=== PATIENT | female | born 1995 | race American Indian/Alaskan Native ===

== ENCOUNTER 2018-09-14 20:44 | Emergency (ER) | payer OTHER ==
--- NOTE | 2018-09-14 21:18 | Emergency Department Report ---
Chief Complaint: Abdominal Pain Stated Complaint: UNABLE TO EAT/ABD PAIN Time Seen by Provider: 09/14/18 21:16 - HPI History of Present Illness: pt presents for epigastric and RUQ abd pain that began two weeks ago no N/V/D states she is constipated no fever LNMP September 05 no PMHx non smoker occ drinker no drug use - Exam Vital Signs: Vital Signs 09/14/18 20:53 Temperature 98.7 F Pulse Rate 88 Respiratory 18 Rate Blood Pressure 126/85 O2 Sat by Pulse 100 Oximetry MSE screening note: Focused history and physical exam performed. Due to findings the following was ordered: labs, UA, urine preg, XR abd ED Disposition for MSE Condition: Stable Instructions: Abdominal Pain (ED) Referrals: SHARON RAYO MD [Primary Care Provider] - 3-5 Days
[2018-09-14 21:50] LABS: Basophils % (Auto) 0.7 % (0.0-1.8); Eosinophils # (Auto) 0.3 K/mm3 (0.0-0.4); Eosinophils % (Auto) 4.4 % (0.0-4.3); Hematocrit 36.8 % (30.3-42.9); Hemoglobin 12.9 gm/dl (10.1-14.3); Lymphocytes # (Auto) 3.1 K/mm3 (1.2-5.4); Lymphocytes % (Auto) 44.4 % (13.4-35.0); Mean Corpuscular HGB Conc 35 % (30-34); Mean Corpuscular Volume 86 fl (79-97); Monocytes # (Auto) 0.5 K/mm3 (0.0-0.8); Monocytes % (Auto) 7.3 % (0.0-7.3); Platelet Count 275 K/mm3 (140-440); Red Blood Count 4.28 M/mm3 (3.65-5.03); Red Cell Distribution Width 12.3 % (13.2-15.2)
[2018-09-14 22:07] LABS: Alanine Aminotransferase 9 units/L (7-56); Albumin 4.6 g/dL (3.9-5); BUN/Creatinine Ratio 11; Blood Urea Nitrogen 9 mg/dL (7-17); Calcium 9.5 mg/dL (8.4-10.2); Hemolysis Index 7
[2018-09-14 23:15] LABS: Bilirubin,Urine NEG (Negative); Blood,Urine NEG (Negative); Color,Urine Yellow (Yellow); Mucus,Urine 3+ /HPF
[2018-09-14 23:18] LABS: HCG Qualitative,Urine Negative (Negative)
--- NOTE | 2018-09-15 00:07 | Emergency Department Report ---
ED Abdominal Pain HPI - General Chief Complaint: Abdominal Pain Stated Complaint: UNABLE TO EAT/ABD PAIN Time Seen by Provider: 09/14/18 21:16 Source: patient Mode of arrival: Ambulatory Limitations: No Limitations - History of Present Illness Initial Comments: This is a 23-year-old female here report that she has been having abdominal pain over a week with weight loss of 11 pounds over 3 weeks and she has not been eating in and she has not had a bowel movement in 1 week. Pain is 10/10 and generalized. Denies any back pain or urinary burning frequency or urgency. Denies any nausea or vomiting. Denies any chest pain or shortness of breath. Last menstrual cycle was 09/05/2018. Denies any fever chills or sore throats. MD Complaint: abdominal pain Onset/Timin -: week(s) Location: diffuse Radiation: none Migration to: no migration Severity: severe Severity scale (0 -10): 10 Quality: cramping, aching Consistency: intermittent Improves With: nothing Worsens With: nothing Context: other (unknown) Associated Symptoms: anorexia, other (reports weight loss of 11 pounds over 3 weeks). denies: nausea, vomiting, diarrhea, fever, chills, constipation, dysuria, hematemesis, hematochezia, melena, hematuria, syncope Treatments Prior to Arrival: other (none) - Related Data LMP Date: 09/05/18 Previous Rx's Medication Instructions Recorded Last Taken Type Acetaminophen/Codeine [Tylenol #3] 1 tab PO Q6H PRN #14 tab 11/04/13 Unknown Rx Ondansetron [Zofran Odt] 4 mg PO Q4H #14 tab.rapdis 11/04/13 Unknown Rx Pseudoephed/Cod/Guaifen 5 ml PO Q8H #1 bottle 03/17/15 Unknown Rx [Robitussin DAC 10-100-30Mg/5Ml] Dicyclomine [Bentyl] 40 mg PO Q8H 3 Days #9 tablet 09/15/18 Unknown Rx Allergies Allergy/AdvReac Type Severity Reaction Status Date / Time No Known Allergies Allergy Verified 12/01/14 10:37 ED Review of Systems ROS: Stated complaint: UNABLE TO EAT/ABD PAIN Other details as noted in HPI Constitutional: weakness. denies: chills, fever Eyes: denies: eye discharge ENT: denies: throat pain, congestion Respiratory: denies: cough, shortness of breath, SOB with exertion, SOB at rest, stridor, wheezing Cardiovascular: denies: chest pain, palpitations, dyspnea on exertion, edema, syncope Gastrointestinal: abdominal pain, constipation. denies: nausea, vomiting, diarrhea, hematemesis, melena, hematochezia Genitourinary: denies: urgency, dysuria, frequency, hematuria, discharge, abnormal menses, dyspareunia Musculoskeletal: denies: back pain, joint swelling, arthralgia, myalgia Skin: denies: rash Neurological: denies: headache, numbness, paresthesias, confusion, abnormal gait, vertigo ED Past Medical Hx - Past Medical History Previous Medical History?: No - Surgical History Past Surgical History?: Yes Additional Surgical History: plastic surgery on forehead - Family History Family history: hypertension - Social History Smoking Status: Never Smoker Substance Use Type: None - Medications Home Medications: Home Medications Medication Instructions Recorded Confirmed Last Taken Type Acetaminophen/Codeine [Tylenol #3] 1 tab PO Q6H PRN #14 tab 11/04/13 Unknown Rx Ondansetron [Zofran Odt] 4 mg PO Q4H #14 tab.rapdis 11/04/13 Unknown Rx Pseudoephed/Cod/Guaifen 5 ml PO Q8H #1 bottle 03/17/15 Unknown Rx [Robitussin DAC 10-100-30Mg/5Ml] Dicyclomine [Bentyl] 40 mg PO Q8H 3 Days #9 tablet 09/15/18 Unknown Rx ED Physical Exam - General Limitations: No Limitations General appearance: alert, in no apparent distress - Head Head exam: Present: atraumatic, normocephalic, normal inspection - Eye Eye exam: Present: normal appearance, PERRL, EOMI - ENT ENT exam: Present: normal orophraynx, mucous membranes dry, TM's normal bilaterally, normal external ear exam - Neck Neck exam: Present: normal inspection, full ROM, other (C-spine tenderness). Absent: tenderness, meningismus, lymphadenopathy - Respiratory Respiratory exam: Absent: normal lung sounds bilaterally, respiratory distress, chest wall tenderness - Cardiovascular Cardiovascular Exam: Present: regular rate, normal rhythm, normal heart sounds - GI/Abdominal GI/Abdominal exam: Present: soft, tenderness (minimal tenderness to the lower abdomen), normal bowel sounds. Absent: distended, guarding, rebound, rigid, organomegaly, mass, bruit, pulsatile mass - Extremities Exam Extremities exam: Present: normal inspection, full ROM, normal capillary refill, other (No cce. + 2 pulses in all extremities, no neurovascular compromise). Absent: tenderness, pedal edema, joint swelling, calf tenderness - Back Exam Back exam: Present: normal inspection, full ROM, other (ambulates without any difficulties). Absent: tenderness, CVA tenderness (R), CVA tenderness (L), muscle spasm, paraspinal tenderness, vertebral tenderness, rash noted - Neurological Exam Neurological exam: Present: alert, oriented X3, normal gait - Psychiatric Psychiatric exam: Present: normal affect, normal mood - Skin Skin exam: Present: warm, dry, intact, normal color. Absent: rash ED Course Vital Signs 09/14/18 09/15/18 20:53 03:14 Temperature 98.7 F 97.1 F L Pulse Rate 88 72 Respiratory 18 16 Rate Blood Pressure 126/85 Blood Pressure 116/64 [Left] O2 Sat by Pulse 100 98 Oximetry - Reevaluation(s) Reevaluation #1: 09/15/18 01:29 Patient stable throughout ED course. Her vital signs are stable. Abdominal x- ray normal findings. Labs are stable except urine with elevated ketone and she was able to tolerate oral liquids without any difficulties for rehydration Reevaluation #2: 09/15/18 02:31 Patient is still awaiting CT scan of the abdomen and pelvis. She stated that presents Reevaluation #3: 09/15/18 05:30 09/15/18 05:29 Patient stable throughout ED course abdominal x-ray normal. Urinalysis showed that she had dehydration with elevated ketones and she was given by mouth fluids and tolerated well. She says she is able to drink but when she eats it makes her gag. Vital signs remained stable. Patient is currently in CT scan. T4 and TSH is normal Reevaluation #4: 09/15/18 06:24 Bentyl, lidocaine and Maalox ordered. CT scan with negative findings except right ovarian cysts which was on previous CT scan . ED Medical Decision Making - Lab Data Result diagrams: 09/14/18 21:26 09/14/18 21:26 Lab Results 09/14/18 09/14/18 09/14/18 Range/Units 21:26 21:26 Unknown WBC 6.9 (4.5-11.0) K/mm3 RBC 4.28 (3.65-5.03) M/mm3 Hgb 12.9 (10.1-14.3) gm/dl Hct 36.8 (30.3-42.9) % MCV 86 (79-97) fl MCH 30 (28-32) pg MCHC 35 H (30-34) % RDW 12.3 L (13.2-15.2) % Plt Count 275 (140-440) K/mm3 Lymph % (Auto) 44.4 H (13.4-35.0) % Holmes % (Auto) 7.3 (0.0-7.3) % Eos % (Auto) 4.4 H (0.0-4.3) % Baso % (Auto) 0.7 (0.0-1.8) % Lymph # 3.1 (1.2-5.4) K/mm3 Holmes # 0.5 (0.0-0.8) K/mm3 Eos # 0.3 (0.0-0.4) K/mm3 Baso # 0.0 (0.0-0.1) K/mm3 Seg Neutrophils % 43.2 (40.0-70.0) % Seg Neutrophils # 3.0 (1.8-7.7) K/mm3 Sodium 139 (137-145) mmol/L Potassium 4.5 (3.6-5.0) mmol/L Chloride 102.7 (98-107) mmol/L Carbon Dioxide 21 L (22-30) mmol/L Anion Gap 20 mmol/L BUN 9 (7-17) mg/dL Creatinine 0.8 (0.7-1.2) mg/dL Estimated GFR > 60 ml/min BUN/Creatinine Ratio 11 % Glucose 79 (65-100) mg/dL Calcium 9.5 (8.4-10.2) mg/dL Total Bilirubin 0.70 (0.1-1.2) mg/dL AST 17 (5-40) units/L ALT 9 (7-56) units/L Alkaline Phosphatase 37 (35-129) units/L Total Protein 8.3 H (6.3-8.2) g/dL Albumin 4.6 (3.9-5) g/dL Albumin/Globulin Ratio 1.2 % Lipase 19 (13-60) units/L Urine Color Yellow (Yellow) Urine Turbidity Slightly-cloudy (Clear) Urine pH 5.0 (5.0-7.0) Ur Specific Kaycee 1.027 (1.003-1.030) Urine Protein 30 mg/dl (Negative) mg/dL Urine Glucose (UA) Neg (Negative) mg/dL Urine Ketones 80 (Negative) mg/dL Urine Blood Neg (Negative) Urine Nitrite Neg (Negative) Urine Bilirubin Neg (Negative) Urine Urobilinogen 2.0 (<2.0) mg/dL Ur Leukocyte Esterase Neg (Negative) Urine WBC (Auto) 1.0 (0.0-6.0) /HPF Urine RBC (Auto) 2.0 (0.0-6.0) /HPF U Epithel Cells (Auto) 9.0 (0-13.0) /HPF Urine Mucus 3+ /HPF Urine HCG, Qual Negative (Negative) - Radiology Data Radiology results: report reviewed Abdominal 2 view x-ray done and dictated by radiologist and no acute findings. CT scan of the abdomen and pelvis with IV contrast dictated by radiologist and report reviewed by myself. Please see below for details Findings [facility] [address] [place] [address] XRay Report Signed Patient: CHRISTY LONDON MR#: [id number] : 1995 Acct:[id number] Age/Sex: 23 / F ADM Date: 09/14/18 Loc: ED Attending Dr: Ordering Physician: EDMAR ALBA Date of Service: 09/14/18 Procedure(s): XR abdomen 2V Accession Number(s): [id number] cc: EDMAR ALBA Fluoro Time In Minutes: PROCEDURE: XR ABDOMEN 2V TECHNIQUE: Abdominal series, including supine and upright AP views. HISTORY: constipation COMPARISONS: None . FINDINGS: Bowel gas pattern: Nonobstructive . Masses or calcifications: None . Bony structures: No significant abnormality . Pneumoperitoneum: None . Other: No significant findings . IMPRESSION: No acute abnormality. This document is electronically signed by Yumiko Lee DO., Sep 15 2018 12:53:53 AM ET Transcribed By: [facility] Dictated By: YUMIKO LEE MD Electronically Authenticated By: YUMIKO LEE MD Signed Date/Time: 09/15/18 0055 Findings [facility] [address] [place] [id number] Cat Scan Report Signed Patient: CHRISTY LONDON MR#: [id number] : 1995 Acct:[id number] Age/Sex: 23 / F ADM Date: 09/14/18 Loc: ED Attending Dr: Ordering Physician: EDMAR CLEANING Date of Service: 09/15/18 Procedure(s): CT abdomen pelvis w con Accession Number(s): [id number] cc: EDMAR CLEANING PROCEDURE: CT ABDOMEN PELVIS W CON TECHNIQUE: Computerized axial tomography of the abdomen and pelvis was performed after the IV injection of iodinated nonionic contrast. HISTORY: abominal pain ?1 week with weight loss COMPARISONS: None . FINDINGS: Visualized lower thorax: No significant abnormality. Liver: Normal size and attenuation. Spleen: Normal size and attenuation. Gallbladder and biliary system: Normal. Pancreas: Normal. Adrenals: Normal. Kidneys: Normal. GI tract: No obstruction. No ileus or enteritis. The cecum, appendix and colon are normal . Lymph nodes and mesentery: Normal. Vasculature: Normal.. Bladder: Normal. Reproductive organs: There is a 2.5 cm cyst on the right ovary. Moderate fluid in the lower pelvis.. Peritoneum: Moderate fluid in the lower pelvis. Musculoskeletal structures: No significant abnormality. Other: None . IMPRESSION: There is no evidence of intestinal or urinary tract obstruction. No ileus or enteritis. The appendix is normal. There is a 2.5 cm cyst on the right ovary. Moderate fluid in the lower pelvis is noted. . This document is electronically signed by Yumiko Lee DO., Sep 15 2018 05:46:17 AM ET Transcribed By: [facility] Dictated By: YUMIKO LEE MD Electronically Authenticated By: YUMIKO LEE MD Signed Date/Time: 09/15/18 0548 DD/ 1 TD/TT: 09/15/18151 - Medical Decision Making This is a 23-year-old female came to the hospital for 1 week of abdominal pain with complaining of weight loss of 11 pounds over 3 weeks. That is unintentional and that she had not had a bowel movement for one week which is not usual and also reported that she is able to drink fluid but she cannot tolerate any solid food because it makes her gag. Abdominal pain is 10/10 and cramping to lower abdomen. Last menstrual period was 09/05/2018. Abdominal exam was mild tenderness to palpate to pelvic area. No CVA tenderness and no mass or hernia. Other exam was normal. Abdominal [id number] findings CT scan of the abdomen and pelvis IV contrast shows right ovarian cyst with moderate fluid and pelvis which was on previous CT scan a few years ago. She has no acute abnormality on CT scan. X-ray and CT scan was dictated by radiologist and report reviewed by myself. Labs: CBC stable, CMP stable, urinalysis is stable except she has elevated ketones and she was orally hydrated with 1 L of fluid which she tolerated well. She is not having any nausea or vomiting or diarrhea and her pain is better. T SH and T4 normal values. test is negative and lipase is normal Assessment/plan Abdominal pain stable-CT scan is stable. [place] to be given Bentyl, lidocaine and Maalox prior to discharge Dehydration-patient was able to drink 1 L of water without any nausea or vomiting or increasing abdominal pain. Right ovarian cyst-stable and was noted on previous CT scan a couple years ago. -Anorexia or weight loss-I discussed the patient that she will need to follow up with primary care doctor and if she does not have a primary care doctor to follow-up at [facility] for evaluation of anorexia with weight loss. I also discussed with her that she is to follow-up with gastroentero logist for evaluation. I discussed with her that she should call today to schedule an appointment for follow-up visit for tomorrow to be seen by provider. I discussed her lab results and CT scan and x-ray results with her. Patient is feeling better and she is not constipated. X-ray. I told her she is not having bowel movement because she is not eating and and that she needs to start off by eating soft food to prevent her from Gagging. Patient discharged home in stable condition, vital signs stable she is afebrile and given prescription for Bentyl - Differential Diagnosis bowel obstruction, malignancy, pelvic abnormality UTI, constipation, Critical care attestation.: If time is entered above; I have spent that time in minutes in the direct care of this critically ill patient, excluding procedure time. ED Disposition Clinical Impression: Anorexia, Weight loss, unintentional Abdominal pain Qualifiers: Abdominal location: generalized Qualified Code(s): R10.84 - Generalized abdominal pain Disposition: - TO HOME OR SELFCARE Is pt being admited?: No Does the pt Need Aspirin: No Condition: Stable Instructions: Dehydration (ED), Abdominal Pain (ED) Additional Instructions: Ensure sure that you follow-up with [facility] in one to 2 days as he did not have a primary care physician Symptoms worsens, return to the emergency room Follow-up with primary care doctor as discussed and [place] [employer]inist for evaluation and treatment of abdominal pain with weight loss and no appetite Increasing fluid intake to keep hydrated. During Gatorade and water at least 2- 3 L per day. Start off with a soft diet to include bananas and rice applesauce and toast and advance as needed. Avoid spicy and acidic food Take Bentyl for stomach pain Referrals: SHARON RAYO MD [Primary Care Provider] - 09/16/18 [facility] [Provider Group] - 09/17/18 Forms: Work/School Release Form(ED)
--- NOTE | 2018-09-15 00:55 | XRay Report ---
PROCEDURE: XR ABDOMEN 2V TECHNIQUE: Abdominal series, including supine and upright AP views. HISTORY: constipation COMPARISONS: None . FINDINGS: Bowel gas pattern: Nonobstructive . Masses or calcifications: None . Bony structures: No significant abnormality . Pneumoperitoneum: None . Other: No significant findings . IMPRESSION: No acute abnormality. This document is electronically signed by Yumiko Lee DO., Sep 15 2018 12:53:53 AM ET
--- NOTE | 2018-09-15 05:48 | Cat Scan Report ---
PROCEDURE: CT ABDOMEN PELVIS W CON TECHNIQUE: Computerized axial tomography of the abdomen and pelvis was performed after the IV inject ion of iodinated nonionic contrast. HISTORY: abominal pain ?1 week with weight loss COMPARISONS: None . FINDINGS: Visualized lower thorax: No significant abnormality. Liver: Normal size and attenuation. Spleen: Normal size and attenuation. Gallbladder and biliary system: Normal. Pancreas: Normal. Adrenals: Normal. Kidneys: Normal. GI tract: No obstruction. No ileus or enteritis. The cecum, appendix and colon are normal . Lymph nodes and mesentery: Normal. Vasculature: Normal.. Bladder: Normal. Reproductive organs: There is a 2.5 cm cyst on the right ovary. Moderate fluid in the lower pelvis.. Peritoneum: Moderate fluid in the lower pelvis. Musculoskeletal structures: No significant abnormality. Other: None . IMPRESSION: There is no evidence of intestinal or urinary tract obstruction. No ileus or enteritis. The appendix is normal. There is a 2.5 cm cyst on the right ovary. Moderate fluid in the lower pelvis is noted. . This document is electronically signed by Yumiko Lee DO., Sep 15 2018 05:46:17 AM ET
[2018-09-15] MEDS ORDERED: BENTYL PO ONE (06:23)
[2018-09-15] MEDS ORDERED: LIDOCAINE VISCOUS 2% PO ONE (06:23)
[2018-09-15] MEDS ORDERED: ALUM-MAG HYDROX-SIMETH 200-200-20MG/5ML PO ONE (06:23)
[2018-09-15 06:59] VITALS: BP 98/61
== END 2018-09-15 06:58 | disposition home or self-care (01) ==
LOC: ED 20:44
DX: R10.84 Generalized abdominal pain (principal); R63.0 Anorexia; R63.4 Abnormal weight loss
CPT/HCPCS: 36415; 74019; 74177; 80053; 81001; 81025; 83690; 84436; 84443; 85025; 87086; 99284; Q9967

== ENCOUNTER 2020-02-29 13:27 | Outpatient (CLI) | payer MEDICAID ==
[2020-02-29 14:42] VITALS: BP 123/73
== END 2020-02-29 16:32 | disposition home or self-care (01) ==
LOC: TRG 13:27
PROVIDERS: ATTEND Obstetrics & Gynecology
DX: O47.1 False labor at or after 37 completed weeks of gestation (principal); Z3A.37 37 weeks gestation of pregnancy
CPT/HCPCS: 59025

== ENCOUNTER 2020-05-30 16:10 | Emergency (ER) | payer MEDICAID ==
[2020-05-30 16:32] VITALS: BP 117/78
--- NOTE | 2020-05-30 18:11 | Emergency Department Report ---
ED Female HPI - General Chief complaint: Vaginal Bleeding Stated complaint: VAGINAL BLEEDING Time Seen by Provider: 05/30/20 18:05 Source: patient Mode of arrival: Ambulatory Limitations: No Limitations - History of Present Illness Initial comments: Patient is a 25-year-old female presents emergency room complaints of heavy vaginal bleeding that began 2 days ago. She states that she is having to change her pad or tampon approximately every 10 minutes and is soaking through her clothes. Passing clots. States that occasionally she does have lower menstrual cramps. Patient states that she had a on 03/04/2020 and reports that she had a fibroid removal right after her . She states that last month in April was the first time she had had a menstrual cycle since having the child, she states that she had bleeding for 3 weeks. She states that she went to see her [employer] Dr. Ellis today and was advised to be evaluated in the emergency department. She denies any fever, nausea, vomiting, diarrhea, dysuria, abnormal discharge, back pain. No past medical history. No allergies to medications. She is not currently on any control but has been in the past due to irregular cycles. - Related Data Previous Rx's Medication Instructions Recorded Last Taken Type Acetaminophen/Codeine [Tylenol #3] 1 tab PO Q6H PRN #14 tab 11/04/13 Unknown Rx Ondansetron [Zofran Odt] 4 mg PO Q4H #14 tab.rapdis 11/04/13 Unknown Rx Pseudoephed/Cod/Guaifen 5 ml PO Q8H #1 bottle 03/17/15 Unknown Rx [Robitussin DAC 10-100-30Mg/5Ml] Dicyclomine [Bentyl] 40 mg PO Q8H 3 Days #9 tablet 09/15/18 Unknown Rx Ibuprofen [Motrin] 600 mg PO Q8H PRN #60 tablet 03/05/20 Unknown Rx oxyCODONE /ACETAMINOPHEN [Percocet 1 tab PO Q6HR PRN #20 tablet 03/05/20 Unknown Rx 5/325] medroxyPROGESTERone ACETATE 10 mg PO QDAY 10 Days #10 tablet 05/30/20 Unknown Rx [Provera] Allergies Allergy/AdvReac Type Severity Reaction Status Date / Time No Known Allergies Allergy Verified 12/01/14 10:37 ED Review of Systems ROS: Stated complaint: VAGINAL BLEEDING Other details as noted in HPI Comment: All other systems reviewed and negative ED Past Medical Hx - Past Medical History Previous Medical History?: No Hx Hypertension: No Hx Heart Attack/AMI: No Hx Congestive Heart Failure: No Hx Diabetes: No Hx Deep Vein Thrombosis: No Hx Liver Disease: No Hx Renal Disease: No Hx Sickle Cell Disease: No Hx Seizures: No Hx Asthma: No Hx COPD: No Hx HIV: No - Surgical History Hx Pacemaker: No Hx Internal Defibrillator: No Additional Surgical History: plastic surgery on forehead. C section - Social History Smoking Status: Never Smoker - Medications Home Medications: Home Medications Medication Instructions Recorded Confirmed Last Taken Type Acetaminophen/Codeine [Tylenol #3] 1 tab PO Q6H PRN #14 tab 11/04/13 03/04/20 Unknown Rx Ondansetron [Zofran Odt] 4 mg PO Q4H #14 tab.rapdis 11/04/13 03/04/20 Unknown Rx Pseudoephed/Cod/Guaifen 5 ml PO Q8H #1 bottle 03/17/15 03/04/20 Unknown Rx [Robitussin DAC 10-100-30Mg/5Ml] Dicyclomine [Bentyl] 40 mg PO Q8H 3 Days #9 tablet 09/15/18 03/04/20 Unknown Rx Ibuprofen [Motrin] 600 mg PO Q8H PRN #60 tablet 03/05/20 Unknown Rx oxyCODONE /ACETAMINOPHEN [Percocet 1 tab PO Q6HR PRN #20 tablet 03/05/20 Unknown Rx 5/325] medroxyPROGESTERone ACETATE 10 mg PO QDAY 10 Days #10 tablet 05/30/20 Unknown Rx [Provera] ED Physical Exam - General Limitations: No Limitations General appearance: alert, in no apparent distress - Head Head exam: Present: atraumatic, normocephalic - Eye Eye exam: Present: normal appearance - ENT ENT exam: Present: mucous membranes moist - Respiratory Respiratory exam: Present: normal lung sounds bilaterally. Absent: respiratory distress, wheezes, rales, rhonchi, stridor, chest wall tenderness, accessory muscle use, decreased breath sounds, prolonged expiratory - Cardiovascular Cardiovascular Exam: Present: regular rate, normal rhythm, normal heart sounds. Absent: systolic murmur, diastolic murmur, rubs, gallop - GI/Abdominal GI/Abdominal exam: Present: soft, normal bowel sounds. Absent: distended, tenderness, guarding, rebound, rigid - Neurological Exam Neurological exam: Present: alert, oriented X3 - Psychiatric Psychiatric exam: Present: normal affect, normal mood - Skin Skin exam: Present: warm, dry, intact ED Course Vital Signs 05/30/20 16:31 Temperature 98.8 F Pulse Rate 107 H Respiratory 18 Rate Blood Pressure 117/78 O2 Sat by Pulse 98 Oximetry ED Medical Decision Making - Lab Data Result diagrams: 05/30/20 18:29 05/30/20 18:29 Lab Results 05/30/20 05/30/20 05/30/20 Range/Units 18:29 18:29 18:29 WBC 11.9 H (4.5-11.0) K/mm3 RBC 4.87 (3.65-5.03) M/mm3 Hgb 11.9 (10.1-14.3) gm/dl Hct 36.5 (30.3-42.9) % MCV 75 L (79-97) fl MCH 24 L (28-32) pg MCHC 33 (30-34) % RDW 18.0 H (13.2-15.2) % Plt Count 278 (140-440) K/mm3 Lymph % (Auto) 18.6 (13.4-35.0) % Graves % (Auto) 7.1 (0.0-7.3) % Eos % (Auto) 4.1 (0.0-4.3) % Baso % (Auto) 0.7 (0.0-1.8) % Lymph # (Auto) 2.2 (1.2-5.4) K/mm3 Graves # (Auto) 0.8 (0.0-0.8) K/mm3 Eos # (Auto) 0.5 H (0.0-0.4) K/mm3 Baso # (Auto) 0.1 (0.0-0.1) K/mm3 Seg Neutrophils % 69.5 (40.0-70.0) % Seg Neutrophils # 8.3 H (1.8-7.7) K/mm3 Sodium 140 (137-145) mmol/L Potassium 4.1 (3.6-5.0) mmol/L Chloride 105.3 (98-107) mmol/L Carbon Dioxide 23 (22-30) mmol/L Anion Gap 16 mmol/L BUN 11 (7-17) mg/dL Creatinine 0.7 (0.6-1.2) mg/dL Estimated GFR > 60 ml/min BUN/Creatinine Ratio 16 % Glucose 86 (65-100) mg/dL Calcium 9.3 (8.4-10.2) mg/dL Total Bilirubin 0.50 (0.1-1.2) mg/dL AST 16 (5-40) units/L ALT 12 (7-56) units/L Alkaline Phosphatase 73 (35-129) units/L Total Protein 8.1 (6.3-8.2) g/dL Albumin 4.6 (3.9-5) g/dL Albumin/Globulin Ratio 1.3 % HCG, Quant < 2 (0-4) mIU/mL Urine Color (Yellow) Urine Turbidity (Clear) Urine pH (5.0-7.0) Ur Specific [place] (1.003-1.030) Urine Protein (Negative) mg/dL Urine Glucose (UA) (Negative) mg/dL Urine Ketones (Negative) mg/dL Urine Blood (Negative) Urine Nitrite (Negative) Urine Bilirubin (Negative) Urine Urobilinogen (<2.0) mg/dL Ur Leukocyte Esterase (Negative) Urine WBC (Auto) (0.0-6.0) /HPF Urine RBC (Auto) (0.0-6.0) /HPF Urine Mucus /HPF 05/30/20 Range/Units 18:49 WBC (4.5-11.0) K/mm3 RBC (3.65-5.03) M/mm3 Hgb (10.1-14.3) gm/dl Hct (30.3-42.9) % MCV (79-97) fl MCH (28-32) pg MCHC (30-34) % RDW (13.2-15.2) % Plt Count (140-440) K/mm3 Lymph % (Auto) (13.4-35.0) % Graves % (Auto) (0.0-7.3) % Eos % (Auto) (0.0-4.3) % Baso % (Auto) (0.0-1.8) % Lymph # (Auto) (1.2-5.4) K/mm3 Graves # (Auto) (0.0-0.8) K/mm3 Eos # (Auto) (0.0-0.4) K/mm3 Baso # (Auto) (0.0-0.1) K/mm3 Seg Neutrophils % (40.0-70.0) % Seg Neutrophils # (1.8-7.7) K/mm3 Sodium (137-145) mmol/L Potassium (3.6-5.0) mmol/L Chloride (98-107) mmol/L Carbon Dioxide (22-30) mmol/L Anion Gap mmol/L BUN (7-17) mg/dL Creatinine (0.6-1.2) mg/dL Estimated GFR ml/min BUN/Creatinine Ratio % Glucose (65-100) mg/dL Calcium (8.4-10.2) mg/dL Total Bilirubin (0.1-1.2) mg/dL AST (5-40) units/L ALT (7-56) units/L Alkaline Phosphatase (35-129) units/L Total Protein (6.3-8.2) g/dL Albumin (3.9-5) g/dL Albumin/Globulin Ratio % HCG, Quant (0-4) mIU/mL Urine Color Red (Yellow) Urine Turbidity Turbid (Clear) Urine pH 6.0 (5.0-7.0) Ur Specific [place] 1.025 (1.003-1.030) Urine Protein >500 (Negative) mg/dL Urine Glucose (UA) 50 (Negative) mg/dL Urine Ketones Neg (Negative) mg/dL Urine Blood Lg (Negative) Urine Nitrite Neg (Negative) Urine Bilirubin Neg (Negative) Urine Urobilinogen < 2.0 (<2.0) mg/dL Ur Leukocyte Esterase Neg (Negative) Urine WBC (Auto) 21.0 H (0.0-6.0) /HPF Urine RBC (Auto) > 182.0 (0.0-6.0) /HPF Urine Mucus 2+ /HPF - Radiology Data Radiology results: report reviewed Ordering Physician: EDMAR ALBA Date of Service: 05/30/20 Procedure(s): US pelvic complete Accession Number(s): [id number] cc: EDMAR ALBA TRANSABDOMINAL PELVIC ULTRASOUND INDICATION / CLINICAL INFORMATION: Heavy vaginal bleeding. COMPARISON: None available. FINDINGS: The uterus measures 8.6 x 5.0 x 6.2 cm. The endometrial stripe measures 2.5 cm AP. No fibroids are seen. The right ovary measures 4.3 x 2.2 x 3.7 cm and the left ovary 3.9 x 2.6 x 2.1 cm. There is normal blood flow to both ovaries on Doppler exam. No evidence of adnexal mass. There is a small amount of free fluid in both adnexal regions and in the cul-de-sac. Images of the urinary bladder are unremarkable. IMPRESSION: Nonspecific thickening of the endometrial stripe. Signer Name: Meir Shea MD Signed: 05/30/2020 8:04 PM Workstation Name: [id number] Transcribed By: RT Dictated By: Meir Shea MD Electronically Authenticated By: Meir Shea MD Signed Date/Time: 05/30/202003 DD/ 00 TD/TT: - Medical Decision Making Patient is a 25-year-old female presents emergency room complaints of heavy vaginal bleeding that began 2 days ago. She states that she is having to change her pad or tampon approximately every 10 minutes and is soaking through her clothes. Passing clots. States that occasionally she does have lower menstrual cramps. Patient states that she had a on 03/04/2020 and reports that she had a fibroid removal right after her . She states that last sat in April was the first time she had had a menstrual cycle since having the child, she states that she had bleeding for 3 weeks. She states that she went to see her [employer] Dr. Ellis today and was advised to be evaluated in the emergency department. She denies any fever, nausea, vomiting, diarrhea, dysuria, abnormal discharge, back pain. No past medical history. No allergies to medications. She is not currently on any control but has been in the past due to irregular cycles. Initial vitals with mild tachycardia which improved upon repeat to 99 bpm. No hypotension. No abdominal tenderness on exam, no guarding, no rebound, no rigidity, normal bowel sounds, no peritoneal signs. Labs are stable. H&H is normal. UA shows large amount of blood, there are small amount of white blood cells but no leukocyte esterase or nitrites, patient is not having urinary tract symptoms, do not suspect UTI at this time. Pelvic ultrasound IMPRESSION: Nonspecific thickening of the endometrial stripe. Patient states since being in the emergency department her bleeding has significantly improved. She states that she has only had to change her pad twice within the last 4-1/2 hours. She denies any pain at this time. Patient given prescription for Provera as she does not have any contraindications. Discussed the importance of close follow-up with her [employer] Dr. Ellis. Di scussed very strict return precautions in detail with patient. Advised patient Please take medication as prescribed. Increase your water intake. Eat a iron rich diet. Follow-up with your [employer] in the next 2 to 3 days for reexamination. Return to emergency room for any new or worsening symptoms. Critical care attestation.: If time is entered above; I have spent that time in minutes in the direct care of this critically ill patient, excluding procedure time. ED Disposition Clinical Impression: Endometrial thickening on ultrasound Menorrhagia Qualifiers: Menorrhagia type: with irregular cycle Qualified Code(s): N92.1 - Excessive and frequent menstruation with irregular cycle Disposition: DC-01 TO HOME OR SELFCARE Is pt being admited?: No Does the pt Need Aspirin: No Condition: Stable Instructions: Abnormal Uterine Bleeding Additional Instructions: Please take medication as prescribed. Increase your water intake. Eat a iron rich diet. Follow-up with your [employer] in the next 2 to 3 days for reexamination. Return to emergency room for any new or worsening symptoms. Prescriptions: medroxyPROGESTERone ACETATE [Provera] 10 mg PO QDAY 10 Days #10 tablet Referrals: PRIMARY MD DOMINIC [Primary Care Provider] - 2-3 Days JORDEN ELLIS MD [Staff Physician] - 2-3 Days Time of Disposition: 20:22 Print Language: AFGHAN
[2020-05-30 18:52] LABS: Basophils # (Auto) 0.1 K/mm3 (0.0-0.1); Basophils % (Auto) 0.7 % (0.0-1.8); Eosinophils # (Auto) 0.5 K/mm3 (0.0-0.4); Eosinophils % (Auto) 4.1 % (0.0-4.3); Hematocrit 36.5 % (30.3-42.9); Hemoglobin 11.9 gm/dl (10.1-14.3); Lymphocytes # (Auto) 2.2 K/mm3 (1.2-5.4); Lymphocytes % (Auto) 18.6 % (13.4-35.0); Mean Corpuscular HGB Conc 33 % (30-34); Mean Corpuscular Volume 75 fl (79-97); Monocytes # (Auto) 0.8 K/mm3 (0.0-0.8); Monocytes % (Auto) 7.1 % (0.0-7.3); Platelet Count 278 K/mm3 (140-440); Red Blood Count 4.87 M/mm3 (3.65-5.03)
[2020-05-30 19:18] LABS: Alanine Aminotransferase 12 units/L (7-56); Albumin 4.6 g/dL (3.9-5); BUN/Creatinine Ratio 16; Blood Urea Nitrogen 11 mg/dL (7-17); Calcium 9.3 mg/dL (8.4-10.2); Hemolysis Index 5
[2020-05-30 20:03] LABS: Bilirubin,Urine NEG (Negative); Blood,Urine LG (Negative); Color,Urine Red (Yellow); Mucus,Urine 2+ /HPF; Urobilinogen,Urine < 2.0 mg/dL (<2.0)
[2020-05-30 20:04] LABS: Protein,Urine >500 mg/dL (Negative); RBC,Urine > 182.0 /HPF (0.0-6.0)
--- NOTE | 2020-05-30 20:09 | Ultrasound Report ---
TRANSABDOMINAL PELVIC ULTRASOUND INDICATION / CLINICAL INFORMATION: Heavy vaginal bleeding. COMPARISON: None available. FINDINGS: The uterus measures 8.6 x 5.0 x 6.2 cm. The endometrial stripe measures 2.5 cm AP. No fibroids are se en. The right ovary measures 4.3 x 2.2 x 3.7 cm and the left ovary 3.9 x 2.6 x 2.1 cm. There is normal bl ood flow to both ovaries on Doppler exam. No evidence of adnexal mass. There is a small amount of nel e fluid in both adnexal regions and in the cul-de-sac. Images of the urinary bladder are unremarkable . IMPRESSION: Nonspecific thickening of the endometrial stripe. Signer Name: Meir Shea MD Signed: 05/30/2020 8:04 PM Workstation Name: [id number]
== END 2020-05-30 21:03 | disposition home or self-care (01) ==
LOC: ED 16:10
DX: N92.1 Excessive and frequent menstruation with irregular cycle (principal); R93.89 Abnormal findings on diagnostic imaging of other specified body structures; Z79.899 Other long term (current) drug therapy; Z98.890 Other specified postprocedural states
CPT/HCPCS: 36415; 76856; 80053; 81001; 84702; 85025; 87086

== ENCOUNTER 2020-08-27 21:28 | Emergency (ER) | payer MEDICAID ==
[2020-08-27 21:35] VITALS: BP 122/74
[2020-08-27] MEDS ORDERED: ONDANSETRON 4 MG ODT TAB PO ONE (21:48)
[2020-08-27] MEDS ORDERED: DICYCLOMINE 20 MG TAB PO ONE (21:48)
[2020-08-27] MEDS ORDERED: FAMOTIDINE 20 MG TAB PO ONE (21:48)
[2020-08-27 22:30] LABS: Basophils # (Auto) 0.1 K/mm3 (0.0-0.1); Eosinophils # (Auto) 0.5 K/mm3 (0.0-0.4); Eosinophils % (Auto) 5.1 % (0.0-4.3); Hematocrit 30.8 % (30.3-42.9); Hemoglobin 9.8 gm/dl (10.1-14.3); Lymphocytes # (Auto) 1.7 K/mm3 (1.2-5.4); Lymphocytes % (Auto) 18.1 % (13.4-35.0); Mean Corpuscular HGB Conc 32 % (30-34); Mean Corpuscular Volume 72 fl (79-97); Monocytes # (Auto) 0.6 K/mm3 (0.0-0.8); Monocytes % (Auto) 6.5 % (0.0-7.3); Platelet Count 206 K/mm3 (140-440); Red Blood Count 4.28 M/mm3 (3.65-5.03); Red Cell Distribution Width 15.9 % (13.2-15.2)
--- NOTE | 2020-08-27 22:38 | Emergency Department Report ---
ED Abdominal Pain HPI - General Chief Complaint: Abdominal Pain Stated Complaint: NAUSEA;DIZZINESS;LIGHTHEADED Source: patient Mode of arrival: Ambulatory Limitations: No Limitations - History of Present Illness Initial Comments: Patient is a A0 25-year-old -[place] female with no past medical history presents to the ED with complaint of acute onset persistent nausea and vomiting diarrhea as well as left lower quadrant abdominal pain for the last 8 hours. Patient states that she has not been able to keep anything down because of persistent pain. Patient denies dizziness, syncope, dysuria, urinary frequency and urgency, vaginal bleeding, vaginal discharge, low back pain, chest pain, shortness of breath, fever, chills, cough or dizziness and heavy lifting. MD Complaint: abdominal pain, other (Nausea, vomiting, diarrhea and lighthea dedness) -: Sudden, hour(s) (8) Location: LLQ Radiation: LLQ Migration to: no migration Severity scale (0 -10): 7 Quality: cramping, aching, sharp Consistency: constant Improves With: nothing Worsens With: vomiting Context: possible food poisoning Associated Symptoms: denies other symptoms, nausea, vomiting, diarrhea. denies: fever, chills, melena, anorexia - Related Data LMP Date: 08/02/20 Previous Rx's Medication Instructions Recorded Last Taken Type Acetaminophen/Codeine [Tylenol #3] 1 tab PO Q6H PRN #14 tab 11/04/13 Unknown Rx Ondansetron [Zofran Odt] 4 mg PO Q4H #14 tab.rapdis 11/04/13 Unknown Rx Pseudoephed/Cod/Guaifen 5 ml PO Q8H #1 bottle 03/17/15 Unknown Rx [Robitussin DAC 10-100-30Mg/5Ml] oxyCODONE /ACETAMINOPHEN [Percocet 1 tab PO Q6HR PRN #20 tablet 03/05/20 Unknown Rx 5/325] medroxyPROGESTERone ACETATE 10 mg PO QDAY 10 Days #10 tablet 05/30/20 Unknown Rx [Provera] Dicyclomine [Bentyl] 40 mg PO Q8H 3 Days #30 tablet 08/28/20 Unknown Rx Ibuprofen [Motrin 600 MG tab] 600 mg PO Q8H PRN #30 tablet 08/28/20 Unknown Rx Ondansetron [Zofran Odt] 4 mg PO Q6HR PRN #20 tab.rapdis 08/28/20 Unknown Rx Allergies Allergy/AdvReac Type Severity Reaction Status Date / Time No Known Allergies Allergy Verified 12/01/14 10:37 ED Review of Systems ROS: Stated complaint: NAUSEA;DIZZINESS;LIGHTHEADED Other details as noted in HPI Constitutional: denies: chills, fever Eyes: denies: eye pain, eye discharge, vision change ENT: denies: ear pain, throat pain Respiratory: denies: cough, shortness of breath, wheezing Cardiovascular: denies: chest pain, palpitations Endocrine: no symptoms reported Gastrointestinal: abdominal pain, nausea, vomiting, diarrhea Genitourinary: denies: urgency, dysuria, discharge Musculoskeletal: denies: back pain, joint swelling, arthralgia Skin: denies: rash, lesions Neurological: other (Lightheadedness). denies: headache, weakness, paresthesias Psychiatric: denies: anxiety, depression Hematological/Lymphatic: denies: easy bleeding, easy bruising ED Past Medical Hx - Past Medical History Previous Medical History?: No Hx Hypertension: No Hx Heart Attack/AMI: No Hx Congestive Heart Failure: No Hx Diabetes: No Hx Deep Vein Thrombosis: No Hx Liver Disease: No Hx Renal Disease: No Hx Sickle Cell Disease: No Hx Arthritis: No Hx Seizures: No Hx Asthma: No Hx COPD: No Hx HIV: No - Surgical History Past Surgical History?: No Hx Pacemaker: No Hx Internal Defibrillator: No Additional Surgical History: plastic surgery on forehead. C section - Social History Smoking Status: Never Smoker Substance Use Type: None - Medications Home Medications: Home Medications Medication Instructions Recorded Confirmed Last Taken Type Acetaminophen/Codeine [Tylenol #3] 1 tab PO Q6H PRN #14 tab 11/04/13 03/04/20 Unknown Rx Ondansetron [Zofran Odt] 4 mg PO Q4H #14 tab.rapdis 11/04/13 03/04/20 Unknown Rx Pseudoephed/Cod/Guaifen 5 ml PO Q8H #1 bottle 03/17/15 03/04/20 Unknown Rx [Robitussin DAC 10-100-30Mg/5Ml] oxyCODONE /ACETAMINOPHEN [Percocet 1 tab PO Q6HR PRN #20 tablet 03/05/20 Unknown Rx 5/325] medroxyPROGESTERone ACETATE 10 mg PO QDAY 10 Days #10 tablet 05/30/20 Unknown Rx [Provera] Dicyclomine [Bentyl] 40 mg PO Q8H 3 Days #30 tablet 08/28/20 Unknown Rx Ibuprofen [Motrin 600 MG tab] 600 mg PO Q8H PRN #30 tablet 08/28/20 Unknown Rx Ondansetron [Zofran Odt] 4 mg PO Q6HR PRN #20 tab.rapdis 08/28/20 Unknown Rx ED Physical Exam - General Limitations: No Limitations General appearance: alert, in no apparent distress - Head Head exam: Present: atraumatic, normocephalic, normal inspection - Eye Eye exam: Present: normal appearance, PERRL, EOMI Pupils: Present: normal accommodation - ENT ENT exam: Present: normal exam, normal orophraynx, mucous membranes moist, TM's normal bilaterally, normal external ear exam - Neck Neck exam: Present: normal inspection, full ROM - Respiratory Respiratory exam: Present: normal lung sounds bilaterally. Absent: respiratory distress, wheezes, rales, rhonchi, stridor, chest wall tenderness, accessory muscle use, decreased breath sounds, prolonged expiratory - Cardiovascular Cardiovascular Exam: Present: regular rate, normal rhythm, normal heart sounds. Absent: systolic murmur, diastolic murmur, rubs, gallop - GI/Abdominal GI/Abdominal exam: Present: soft, tenderness (Palpable left lower quadrant tenderness), normal bowel sounds. Absent: guarding, rebound, hyperactive bowel sounds, hypoactive bowel sounds - Extremities Exam Extremities exam: Present: normal inspection, full ROM, normal capillary refill - Back Exam Back exam: Present: normal inspection, full ROM. Absent: tenderness, CVA tenderness (R), CVA tenderness (L), muscle spasm, paraspinal tenderness, vertebral tenderness - Neurological Exam Neurological exam: Present: alert, oriented X3, CN II-XII intact, normal gait, reflexes normal - Psychiatric Psychiatric exam: Present: normal affect, normal mood - Skin Skin exam: Present: warm, dry, intact, normal color. Absent: rash ED Course Vital Signs 08/27/20 21:34 Temperature 99.1 F Pulse Rate 91 H Respiratory 17 Rate Blood Pressure 122/74 O2 Sat by Pulse 100 Oximetry ED Medical Decision Making - Lab Data Result diagrams: 08/27/20 22:04 08/27/20 22:04 - Radiology Data Radiology results: report reviewed, image reviewed [facility] [address] [place] [address] Ultrasound Report Signed Patient: CHRISTY LONDON MR#: [id number] : 1995 Acct:[id number] Age/Sex: 25 / F ADM Date: 08/27/20 Loc: ED Attending Dr: Ordering Physician: EDMAR PHAM Date of Service: 08/28/20 Procedure(s): US pelvic complete Accession Number(s): [id number] cc: EDMAR PHAM TRANSABDOMINAL PELVIC ULTRASOUND INDICATION / CLINICAL INFORMATION: LLQ pain. COMPARISON: None available. FINDINGS: The uterus measures 11.0 x 5.4 x 0.3 cm. The endometrial stripe measures 1.2 cm AP and is empty. No fibroids are present. The right ovary measures 4.6 x 4.9 x 4.3 cm and contains a 3.1 cm mildly complex cyst without internal blood flow involving the solid component on Doppler exam. The left ovary measures 3.4 x 2.5 x 2.4 cm. There is normal blood flow to both ovaries on Doppler exam. There is a trace amount of free fluid in the cul-de-sac. Images of the urinary bladder are unremarkable. IMPRESSION: 1. 3.1 cm mildly complex right ovarian cyst is likely a hemorrhagic physiologic cyst. 2. Trace free fluid in the cul-de-sac. Signer Name: Meir Shea MD Signed: 08/28/2020 1:56 AM Workstation Name: [id number] Transcribed By: RT Dictated By: Meir Shea MD Electronically Authenticated By: Meir Shea MD Signed Date/Time: 08/28/20155 DD/ 1 TD/TT: - Medical Decision Making This is a A0 25-year-old -[place] female with no past medical history presents to the ED with complaint of acute onset persistent nausea and vomiting diarrhea as well as left lower quadrant abdominal pain for the last 8 hours. Patient states that she has not been able to keep anything down because of persistent pain. In the ED, patient is alert and oriented x3 and is not in any distress. Patient was treated in the ED for pain and also given antiemetics. Lab test results were reviewed and are all nonactionable. Pelvic ultrasound showed a 3.1 cm mildly complex right ovarian cyst is likely a hemorrhagic physiologic cyst. There is also trace free fluid in the cul-de-sac. On reevaluation, patient's pain is well controlled medications. Patient will discharge home on pain medications and antiemetics and was advised to follow-up with [employer] physician in 3 to 5 days for reevaluation. Patient is advised ret urn to the ED immediately if symptoms get worse. - Differential Diagnosis Ovarian cyst; diverticulitis; gastroenteritis; UTI; appendicitis; Critical care attestation.: If time is entered above; I have spent that time in minutes in the direct care of this critically ill patient, excluding procedure time. ED Disposition Clinical Impression: Acute abdominal pain in left lower quadrant, Nausea, vomiting and diarrhea, Viral gastroenteritis, Bilateral ovarian cysts, Complex cyst of right ovary Disposition: TO HOME OR SELFCARE Is pt being admited?: No Does the pt Need Aspirin: No Condition: Stable Instructions: Viral Gastroenteritis, Adult, [id number], Nausea and Vomiting, Adult, [id number], Abdominal Pain, Adult, [id number], Ovarian Cyst, [id number], Abdominal Pain (ED) Additional Instructions: All lab test results were reviewed and are all nonactionable. Pelvic ultrasound showed bilateral ovarian cyst with the right ovary containing a complex ovarian cyst. Therefore maintain a clear liquid diet for 12 to 24 hours, take medications as needed for pain and also antiemetics for nausea and vomiting. Follow-up with your [employer] physician for further evaluation in 3 to 5 days for reevaluation or otherwise follow-up with your primary care physician in 5 to 7 days for reevaluation. Return to the ED immediately if symptoms get worse. Prescriptions: Dicyclomine [Bentyl] 40 mg PO Q8H 3 Days #30 tablet Ibuprofen [Motrin 600 MG tab] 600 mg PO Q8H PRN #30 tablet PRN Reason: Pain Ondansetron [Zofran Odt] 4 mg PO Q6HR PRN #20 tab.rapdis PRN Reason: Nausea Referrals: PRIMARY MD DOMINIC [Primary Care Provider] - 3-5 Days [facility] [Provider Group] - 3-5 Days JORDEN ELLIS MD [Staff Physician] - 3-5 Days Time of Disposition: 02:20 Print Language: DIVEHI
[2020-08-27 22:44] LABS: Alanine Aminotransferase 12 units/L (7-56); Albumin 4.6 g/dL (3.9-5); Blood Urea Nitrogen 14 mg/dL (7-17); Calcium 9.3 mg/dL (8.4-10.2); Hemolysis Index 1
[2020-08-27 22:49] LABS: BUN/Creatinine Ratio 20
[2020-08-27 23:16] LABS: Bilirubin,Urine NEG (Negative); Blood,Urine NEG (Negative); Color,Urine Yellow (Yellow); Mucus,Urine FEW /HPF; Protein,Urine <15 mg/dL mg/dL (Negative); Urobilinogen,Urine < 2.0 mg/dL (<2.0)
--- NOTE | 2020-08-28 02:00 | Ultrasound Report ---
TRANSABDOMINAL PELVIC ULTRASOUND INDICATION / CLINICAL INFORMATION: LLQ pain. COMPARISON: None available. FINDINGS: The uterus measures 11.0 x 5.4 x 0.3 cm. The endometrial stripe measures 1.2 cm AP and is empty. No f ibroids are present. The right ovary measures 4.6 x 4.9 x 4.3 cm and contains a 3.1 cm mildly complex cyst without interna l blood flow involving the solid component on Doppler exam. The left ovary measures 3.4 x 2.5 x 2.4 c m. There is normal blood flow to both ovaries on Doppler exam. There is a trace amount of free fluid in the cul-de-sac. Images of the urinary bladder are unremarkable. IMPRESSION: 1. 3.1 cm mildly complex right ovarian cyst is likely a hemorrhagic physiologic cyst. 2. Trace free fluid in the cul-de-sac. Signer Name: Meir Shea MD Signed: 08/28/2020 1:56 AM Workstation Name: [id number]
== END 2020-08-28 03:10 | disposition home or self-care (01) ==
LOC: ED 21:28
DX: A08.4 Viral intestinal infection, unspecified (principal); N83.201 Unspecified ovarian cyst, right side; N83.202 Unspecified ovarian cyst, left side; R11.2 Nausea with vomiting, unspecified; R19.7 Diarrhea, unspecified; R10.32 Left lower quadrant pain; Z79.899 Other long term (current) drug therapy; Z98.890 Other specified postprocedural states
CPT/HCPCS: 36415; 76856; 80053; 81001; 83690; 84703; 85025; Q0162